=== PATIENT | female | born 1965 | race African-American/Black ===

== ENCOUNTER → 2016-04-11 | Outpatient (CLI) | payer BC, MEDICAID ==
[~2016-04-11] MED LIST: LISI-646 PO
== END | disposition home or self-care (01) ==
LOC: LAB 14:41
PROVIDERS: ATTEND Internal Medicine
DX: Z84.81 Family history of carrier of genetic disease (principal)
CPT/HCPCS: 81206; 81207

== ENCOUNTER → 2016-05-02 | Outpatient (CLI) | payer BC ==
[2016-05-02 08:06] LABS: Basophils # (auto) 0 uL; Basophils % (auto) 0.3 % (0.0-2.0); Eosinophils # (auto) 0.1 uL; Eosinophils % (auto) 1.3 % (0.0-7.0); Hematocrit 39.4 % (36.0-46.0); Hemoglobin 13.1 g/dL (12.2-16.2); Lymphocytes # (auto) 2.8 uL; Lymphocytes % (auto) 41.2 % (10.0-50.0); Mean Corpuscular Hemoglobin 29.3 pg (28.0-32.0); Mean Corpuscular Hgb Conc. 33.3 g/dL (32.0-36.0); Mean Corpuscular Volume 87.9 fL (80.0-100.0); Mean Platelet Volume 7.4 fL (7.4-10.4); Monocytes # (auto) 0.5 uL; Monocytes % (auto) 7.2 % (0.0-12.0); Neutrophils # (auto) 3.4 uL; Platelet Count (auto) 482 10^3/uL (140-450); Red Cell Distribution Width 13.3 % (11.6-16.0); White Blood Cell 6.8 10^3/uL (4.4-10.8)
[2016-05-02 10:18] LABS: Wright Stain Ready for Review
[2016-05-02 14:07] LABS: Albumin 3.5 g/dL (3.4-5.0); BUN/Creatinine Ratio 13.5; Bilirubin, Total 0.6 mg/dL (0.2-1.0); Calcium 8.7 mg/dL (8.5-10.1); Potassium 4.2 mmol/L (3.5-5.1); Total Protein 7.8 g/dL (6.4-8.2)
== END | disposition home or self-care (01) ==
LOC: LAB 06:58
PROVIDERS: ATTEND Internal Medicine
DX: Z12.11 Encounter for screening for malignant neoplasm of colon (principal)
CPT/HCPCS: 36415; 80053; 81206; 81207; 83615; 84155; 84165; 85025

== ENCOUNTER 2016-12-24 03:04 | Emergency (ER) | payer BC, MEDICAID ==
[~2016-12-24] VITALS: Ht 177.8 cm; Wt 108.9 kg
[2016-12-24 05:17] LABS: Urine Bacteria NONE SEEN /hpf (None Seen); Urine Blood Negative /uL (Negative); Urine Mucus FEW (None Seen); Urine Specific Gravity 1.026 (1.001-1.035); Urine WBC 1 /hpf (0 - 5)
[2016-12-24] MEDS ORDERED: HYDROcodone-ACET 10/325MG TAB PO ONE (06:30)
[2016-12-24] MEDS ORDERED: KETOROLAC TROMETH 60MG/2ML VIAL IM ONE (07:30)
[2016-12-24 08:10] VITALS: BP 151/98
== END 2016-12-24 08:12 | disposition home or self-care (01) ==
LOC: ER 03:06
DX: M43.07 Spondylolysis, lumbosacral region (principal); J45.909 Unspecified asthma, uncomplicated; I10 Essential (primary) hypertension; G89.29 Other chronic pain; M54.9 Dorsalgia, unspecified; Z88.6 Allergy status to analgesic agent; Z79.899 Other long term (current) drug therapy
CPT/HCPCS: 72100; 81001; 81025; 93005; 96372; 99285; J1885

== ENCOUNTER → 2017-01-13 | Outpatient (CLI) | payer BC ==
[2017-01-13 07:09] LABS: Basophils # (auto) 0 uL; Basophils % (auto) 0.4 % (0.0-2.0); Eosinophils # (auto) 0.1 uL; Hematocrit 40.1 % (36.0-46.0); Hemoglobin 13.2 g/dL (12.2-16.2); Lymphocytes # (auto) 2.9 uL; Lymphocytes % (auto) 45.1 % (10.0-50.0); Mean Corpuscular Hemoglobin 29.4 pg (28.0-32.0); Mean Corpuscular Hgb Conc. 32.9 g/dL (32.0-36.0); Mean Corpuscular Volume 89.3 fL (80.0-100.0); Mean Platelet Volume 6.8 fL (6.9-10.8); Monocytes # (auto) 0.5 uL; Monocytes % (auto) 8.5 % (0.0-12.0); Neutrophils # (auto) 2.8 uL; Nucleated Red Blood Cells % 0.1 %; Platelet Count (auto) 432 10^3/uL (140-450); Red Cell Distribution Width 13.5 % (11.8-14.3); White Blood Cell 6.3 10^3/uL (4.4-10.8)
[2017-01-13 07:18] LABS: Urine Bilirubin Negative (Negative); Urine Blood Negative /uL (Negative); Urine Color Yellow (Yellow); Urine Glucose Normal (Normal); Urine Ketone Negative (Negative); Urine Mucus FEW (None Seen); Urine Nitrite Negative (Negative); Urine RBC 2 /hpf (0 - 4); Urine Squamous Epithelial Cell FEW /hpf (<5); Urine Urobilinogen Normal (Negative)
[2017-01-13 08:13] LABS: Albumin 3.6 g/dL (3.4-5.0); BUN/Creatinine Ratio 19.5; Bilirubin, Total 0.6 mg/dL (0.2-1.0); Calcium 8.9 mg/dL (8.5-10.1); Potassium 3.9 mmol/L (3.5-5.1)
== END | disposition home or self-care (01) ==
LOC: LAB 06:34
PROVIDERS: ATTEND Internal Medicine
DX: I10 Essential (primary) hypertension (principal)
CPT/HCPCS: 36415; 80053; 80061; 81001; 82043; 84439; 84443; 85025; 85652

== ENCOUNTER 2017-02-14 17:58 | Emergency (ER) | payer BC ==
[~2017-02-14] VITALS: Ht 175.3 cm; Wt 108.9 kg
[2017-02-14] MEDS ORDERED: ACETAMINOPHEN 325 MG TAB PO ONE (18:15)
[2017-02-14 22:56] VITALS: BP 127/62
== END 2017-02-14 23:54 | disposition home or self-care (01) ==
LOC: ER 18:03
DX: J02.9 Acute pharyngitis, unspecified (principal); J45.909 Unspecified asthma, uncomplicated; I10 Essential (primary) hypertension; Z90.710 Acquired absence of both cervix and uterus; E66.01 Morbid (severe) obesity due to excess calories; Z68.35 Body mass index [BMI] 35.0-35.9, adult
CPT/HCPCS: 71020

== ENCOUNTER 2017-07-29 06:08 | Day surgery (SDC) | payer BC ==
[2017-07-28 16:04] LABS: Basophils # (auto) 0 uL; Eosinophils # (auto) 0.1 uL; Hemoglobin 13.3 g/dL (12.2-16.2); Monocytes # (auto) 0.6 uL; Neutrophils # (auto) 3.1 uL; Red Cell Distribution Width 13.7 % (11.8-14.3)
[2017-07-28 16:05] LABS: Basophils % (auto) 0.4 % (0.0-2.0); Eosinophils % (auto) 1.4 % (0.0-7.0); Hematocrit 39.8 % (36.0-46.0); Lymphocytes # (auto) 2.5 uL; Lymphocytes % (auto) 39.2 % (10.0-50.0); Mean Corpuscular Hemoglobin 30.2 pg (28.0-32.0); Mean Corpuscular Hgb Conc. 33.5 g/dL (32.0-36.0); Mean Corpuscular Volume 90.2 fL (80.0-100.0); Monocytes % (auto) 9.9 % (0.0-12.0); Neutrophils % (auto) 49.1 % (37.0-80.0); Nucleated Red Blood Cells % 0.1 %; Platelet Count (auto) 460 10^3/uL (140-450); Red Blood Cells 4.42 10^6/uL (4.0-5.20); White Blood Cell 6.3 10^3/uL (4.4-10.8)
[2017-07-28 16:19] LABS: Urine Blood Negative /uL (Negative); Urine Mucus FEW (None Seen); Urine WBC 1 /hpf (0 - 5)
[2017-07-28 16:21] LABS: Potassium 3.7 mmol/L (3.5-5.1)
[2017-07-28 16:26] LABS: Albumin 3.7 g/dL (3.4-5.0); BUN/Creatinine Ratio 15.7; Calcium 8.8 mg/dL (8.5-10.1)
[2017-07-28 16:29] LABS: Bilirubin, Total 0.7 mg/dL (0.2-1.0); INR 0.92 (0.9-1.15); Partial Thromboplastin Time 27.1 sec (23.78-33.04); Prothrombin Time 9.9 sec (9.27-12.13); Total Protein 8.6 g/dL (6.4-8.2)
[2017-07-28 16:35] LABS: Urine Bacteria FEW /hpf (None Seen)
[~2017-07-29] VITALS: Ht 175.3 cm; Wt 110.2 kg
[~2017-07-29 06:08] MED LIST changes: +AMLO10TA2 PO; +ATEN-60 PO; +HYDR25TA4 PO
[2017-07-29] MEDS ORDERED: BUPIVACAINE 0.25% INJ 50ML VIAL ONE ×2 (06:53→06:54)
[2017-07-29] MEDS ORDERED: ceFAZolin 1GM/100ML 200 ML IV ONE (07:08)
[2017-07-29] MEDS ORDERED: fentaNYL CITRATE 100 MCG/2 ML VL ONE (07:32)
[2017-07-29] MEDS ORDERED: MIDAZOLAM HCL 1MG/1ML-2 ML VIAL ONE (07:33)
[2017-07-29] MEDS ORDERED: MEPERIDINE HCL (50 MG/ML) 1 ML VIAL ONE (07:34)
[2017-07-29] MEDS ORDERED: DEXAMETHASONE SOD PHOS 10MG/1ML VIAL INJ ONE (07:58)
[2017-07-29] MEDS ORDERED: KETOROLAC TROMETH 30 MG/ML 1ML VIAL ONE (07:58)
[2017-07-29] MEDS ORDERED: PROPOFOL 10 MG/ML 20 ML IV ONE (07:58)
[2017-07-29] MEDS ORDERED: LABETALOL HCL 5 MG/ML 4ML SYRINGE IV PRN (08:00)
[2017-07-29] MEDS ORDERED: MORPHINE SULFATE 8mg/ml INJ SDV IV PRN (08:00)
[2017-07-29] MEDS ORDERED: ePHEDrine SULFATE 50 MG/ML AMP IV PRN (08:00)
[2017-07-29] MEDS ORDERED: ONDANSETRON HCL 4 MG/2 ML VIAL IV ONE (08:00)
[2017-07-29] MEDS ORDERED: MIDAZOLAM HCL 1MG/1ML-2 ML VIAL IV PRN (08:00)
[2017-07-29] MEDS ORDERED: MORPHINE SULFATE 8mg/ml INJ SDV IV ONE (08:00)
[2017-07-29] MEDS ORDERED: HYDROmorphone HCL 2 MG/ML VL IV PRN (08:00)
[2017-07-29] MEDS ORDERED: KETOROLAC TROMETH 30 MG/ML 1ML VIAL IV ONE (08:00)
[2017-07-29] MEDS ORDERED: MORPHINE SULF(PF) 0.5MG/ML 10ML VIAL ONE (08:02)
[2017-07-29] MEDS ORDERED: ONDANSETRON HCL 4 MG/2 ML VIAL ONE (08:04)
[2017-07-29] MEDS ORDERED: SUCCINYLCHOLINE CHLORIDE 20 MG/ML 10ML VIAL IV ONE (08:13)
[2017-07-29 09:53] VITALS: BP 129/75
[2017-07-29] MEDS ORDERED: MORPHINE SULFATE 4 MG/ML SYR/VIAL ONE (10:15)
== END 2017-07-29 10:08 | disposition home or self-care (01) ==
LOC: SUR 06:08
PROVIDERS: ATTEND Orthopaedic Surgery
DX: S83.282A Other tear of lateral meniscus, current injury, left knee, initial encounter (principal); S83.92XA Sprain of unspecified site of left knee, initial encounter; E66.01 Morbid (severe) obesity due to excess calories; M94.262 Chondromalacia, left knee; J45.909 Unspecified asthma, uncomplicated; I10 Essential (primary) hypertension; X58.XXXA Exposure to other specified factors, initial encounter; Y93.9 Activity, unspecified; Y92.9 Unspecified place or not applicable; Y99.9 Unspecified external cause status; Z79.01 Long term (current) use of anticoagulants; Z88.6 Allergy status to analgesic agent; Z90.710 Acquired absence of both cervix and uterus; Z79.899 Other long term (current) drug therapy; Z68.37 Body mass index [BMI] 37.0-37.9, adult
CPT/HCPCS: 29881; 36415; 80053; 81001; 85025; 85610; 85730; J0330; J0690; J1100; J1885; J2175; J2250; J2270; J2405; J2704; J3010; J3490

== ENCOUNTER → 2019-10-18 | Outpatient (CLI) | payer BC ==
[~2019-10-18] MED LIST changes: +AMLO10TA13 PO; -AMLO10TA2 PO
[2019-10-18 16:43] LABS: Basophils # (auto) 0 10 ^3/uL (0-0.2); Eosinophils # (auto) 0.1 10 ^3/uL (0-0.8); Monocytes # (auto) 0.5 10 ^3/uL (0-1.3); White Blood Cell 6.3 10^3/uL (4.4-10.8)
[2019-10-18 16:47] LABS: Basophils % (auto) 0.4 % (0.0-2.0); Eosinophils % (auto) 1.8 % (0.0-7.0); Hematocrit 39.6 % (36.0-46.0); Hemoglobin 13.2 g/dL (12.2-16.2); Lymphocytes # (auto) 2.6 10 ^3/uL (0.4-5.4); Lymphocytes % (auto) 41.4 % (10.0-50.0); Mean Corpuscular Hemoglobin 29.5 pg (28.0-32.0); Mean Corpuscular Hgb Conc. 33.4 g/dL (32.0-36.0); Mean Corpuscular Volume 88.2 fL (80.0-100.0); Monocytes % (auto) 8.7 % (0.0-12.0); Neutrophils % (auto) 47.7 % (37.0-80.0); Nucleated Red Blood Cells % 0.2 %; Platelet Count (auto) 467 10^3/uL (140-450); Red Blood Cells 4.49 10^6/uL (4.0-5.20); Red Cell Distribution Width 13.7 % (11.8-14.3)
[2019-10-18 16:58] LABS: Urine Bacteria FEW /hpf (None Seen); Urine Blood Negative /uL (Negative); Urine Specific Gravity 1.015 (1.001-1.035); Urine WBC 7 /hpf (0 - 5)
[2019-10-18 16:59] LABS: Calcium 9.5 mg/dL (8.5-10.1); Potassium 3.7 mmol/L (3.5-5.1)
[2019-10-18 17:03] LABS: BUN/Creatinine Ratio 10.2; Bilirubin, Total 0.7 mg/dL (0.2-1.0); Total Protein 8.5 g/dL (6.4-8.2)
== END | disposition home or self-care (01) ==
LOC: LAB 16:12
PROVIDERS: ATTEND Internal Medicine
DX: I10 Essential (primary) hypertension (principal); R89.9 Unspecified abnormal finding in specimens from other organs, systems and tissues
CPT/HCPCS: 36415; 80053; 81001; 84439; 84443; 85025; 85610; 85652; 86038; 86200; 86431

== ENCOUNTER 2019-10-29 09:54 | Inpatient (IN) | payer BC ==
[2019-10-29] VITALS (8 sets, daily range): BP systolic 104–139; BP diastolic 48–72
[~2019-10-29] VITALS: Ht 177.8 cm; Wt 122.4 kg
[2019-10-29] MEDS ORDERED: ceFAZolin 1GM/50ML 100 ML IV ONE (10:28)
[2019-10-29] MEDS ORDERED: PREGABALIN CAPSULE 75 MG CAP ONE (11:01)
[2019-10-29] MEDS ORDERED: ACETAMINOPHEN IV 100 ML IV ONE (11:01)
[2019-10-29] MEDS ORDERED: CELECOXIB 100 MG CAP ONE (11:01)
[2019-10-29] MEDS ORDERED: BUPIVACAINE 0.25% INJ 50ML VIAL ONE (12:59)
[2019-10-29] MEDS ORDERED: TRANEXAMIC ACID 20 ML ONE (12:59)
[2019-10-29] MEDS ORDERED: TETRACAINE 1% INJ 2 ML VIAL IJ ONE (13:00)
[2019-10-29] MEDS ORDERED: MORPHINE SULF(PF) 0.5MG/ML 10ML VIAL ONE ×2 (13:01→13:27)
[2019-10-29] MEDS ORDERED: KETOROLAC TROMETH 30 MG/ML 1ML VIAL ONE (13:02)
[2019-10-29] MEDS ORDERED: VANCOMYCIN HCL 1000 MG VL ONE (13:09)
[2019-10-29] MEDS ORDERED: fentaNYL CITRATE 100 MCG/2 ML VL ONE (13:27)
[2019-10-29] MEDS ORDERED: ONDANSETRON HCL 4 MG/2 ML VIAL ONE (13:28)
[2019-10-29] MEDS ORDERED: MIDAZOLAM HCL 1MG/1ML-2 ML VIAL ONE ×2 (13:28→13:31)
[2019-10-29] MEDS ORDERED: SODIUM CHLORIDE LOCK 10 ML ONE (13:28)
[2019-10-29] MEDS ORDERED: PROPOFOL 10 MG/ML 20 ML IV ONE (13:28)
[2019-10-29] MEDS ORDERED: BUPIVACAINE/DEXTROSE MPF 0.75% 2 ML AMP IT ONE (13:29)
[2019-10-29] MEDS ORDERED: EPINEPHrine HCL 1 MG/1 ML AMP ONE (13:29)
[2019-10-29] MEDS ORDERED: NALOXONE HCL 0.4 MG/ML VIAL IV PRN (15:30)
[2019-10-29] MEDS ORDERED: METOCLOPRAMIDE HCL 5MG/ml INJ 2ml VIAL IV PRN (15:30)
[2019-10-29] MEDS ORDERED: diphenhdrAMINE HCL 50 MG/1 ML VL IV PRN (15:30)
[2019-10-29] MEDS ORDERED: MORPHINE SULFATE 4 MG/ML SYR/VIAL IV PRN (15:30)
[2019-10-29] MEDS ORDERED: HYDROmorphone HCL 2 MG/ML VL IV PRN ×2 (15:30→15:45)
[2019-10-29] MEDS: LACTATED RINGER'S 1,000 ML IV SCH ×2 (15:44→21:33)
[2019-10-29] MEDS ORDERED: NITROGLYCERIN 0.4 MG SL TAB SL PRN (15:45)
[2019-10-29] MEDS ORDERED: MORPHINE SULF INJ 2 MG/ML SYRINGE 1ML IV PRN (15:45)
[2019-10-29] MEDS ORDERED: OXYCODONE W/ ACETAMINOPHEN 5/325MG TABLET PO PRN ×2 (15:45)
[2019-10-29] MEDS ORDERED: ONDANSETRON HCL 4 MG/2 ML VIAL IV PRN (15:45)
[2019-10-29] MEDS: KETOROLAC TROMETH 30 MG/ML 1ML VIAL IV SCH (18:25)
--- NOTE | 2019-10-29 19:44 | NUR ---
Opening Shift Note Received report and assumed care of patient. Patient is asleep but responds to verbal stimuli. No signs or symptoms of distress noted, patient currently denies pain. Dressing to Left knee is clean, dry and intact. Instructed patient on plan of care and to call for assistance as needed. Will continue to monitor.
[2019-10-29] MEDS: DOCUSATE SOD 100 MG CAP PO SCH (22:00)
--- NOTE | 2019-10-29 22:11 | NUR ---
Patient Refusing Medication Patient refusing Colace stool softener at this time. Patient states she does not want to take at this time, educated patient regarding risks and benefits of refusing medication. Patient verbalized understanding, continues to refuse. Will continue to monitor.
[2019-10-30] VITALS (21 sets, daily range): BP systolic 94–135; BP diastolic 39–86
[2019-10-30] MEDS: KETOROLAC TROMETH 30 MG/ML 1ML VIAL IV SCH ×5 (00:50→23:35)
--- NOTE | 2019-10-30 07:35 | NUR ---
Duramorph Vital Signs Blood pressure and heart rate documented hourly in vital signs.
[2019-10-30] MEDS ORDERED: METOCLOPRAMIDE HCL 5MG/ml INJ 2ml VIAL IV PRN (09:00)
[2019-10-30] MEDS: DOCUSATE SOD 100 MG CAP PO SCH ×2 (09:14→21:47)
[2019-10-30] MEDS: ENOXAPARIN SOD 40 MG/0.4 ML SYRINGE SC SCH (09:14)
[2019-10-30] MEDS: HCTZ 25 MG TAB PO SCH (09:17)
[2019-10-30] MEDS: amLODIPine BESYLATE 5 MG TAB PO SCH (09:17)
[2019-10-30] MEDS: ATENOLOL 25 MG TAB PO SCH (09:17)
[2019-10-30] MEDS: LISINOPRIL 20 MG TAB PO SCH (09:18)
--- NOTE | 2019-10-30 11:00 | NUR ---
PT FEELING NAUSEATED AND DIZZY. ATTEMPT P.T. LATER. CPM PLACED ON LLE
[2019-10-30] MEDS: SODIUM CHLORIDE 0.9% 1,000 ML IV SCH ×2 (12:25→20:30)
[2019-10-30 12:51] LABS: Hemoglobin 12.9 g/dL (12.2-16.2)
[2019-10-30 13:07] LABS: Albumin 3.3 g/dL (3.4-5.0); Calcium 8.9 mg/dL (8.5-10.1); Potassium 4.1 mmol/L (3.5-5.1)
[2019-10-30 13:11] LABS: Bilirubin, Total 0.7 mg/dL (0.2-1.0); Total Protein 7.7 g/dL (6.4-8.2)
--- NOTE | 2019-10-30 19:45 | NUR ---
Opening Shift Note Received report and assumed care of patient. Patient is awake and alert. No signs or symptoms of distress noted. Dressing to Left knee is clean, dry and intact. Instructed patient on plan of care and to call for assistance as needed. Will continue to monitor.
[2019-10-31] MEDS: SODIUM CHLORIDE 0.9% 1,000 ML IV SCH (02:16)
[2019-10-31 05:00] VITALS: BP 151/79
[2019-10-31 05:26] VITALS: BP 147/84
--- NOTE | 2019-10-31 05:27 | NUR ---
Paged Hospitalist Paged hospitalist regarding upward trend in blood pressure and heart rate from previous night. Last night heart rate in 40s-50s and blood pressure in 100s-110s systolic. Heart rate trends this night 80s-100s and blood pressure in 130-150 systolic. Per MD, discontinue IV fluids at 125ml/hr. Order read back and verified, will carry out and will continue to monitor.
[2019-10-31] MEDS: KETOROLAC TROMETH 30 MG/ML 1ML VIAL IV SCH ×4 (05:38→23:51)
[2019-10-31 08:31] LABS: Hematocrit 33.9 % (36.0-46.0)
[2019-10-31] MEDS: amLODIPine BESYLATE 5 MG TAB PO SCH (08:57)
[2019-10-31] MEDS: ATENOLOL 25 MG TAB PO SCH (08:57)
[2019-10-31] MEDS: LISINOPRIL 20 MG TAB PO SCH (08:58)
[2019-10-31] MEDS: DOCUSATE SOD 100 MG CAP PO SCH ×2 (08:58→22:25)
[2019-10-31] MEDS: HCTZ 25 MG TAB PO SCH (08:58)
[2019-10-31] MEDS: ENOXAPARIN SOD 40 MG/0.4 ML SYRINGE SC SCH (08:59)
[2019-10-31 09:00] VITALS: BP 158/82
[2019-10-31 13:00] VITALS: BP_SYST 147; BP_SYST 157; BP_DIAS 80
[2019-10-31 16:58] VITALS: BP 142/74
--- NOTE | 2019-10-31 19:41 | NUR ---
Opening Shift Note Received report and assumed care of patient. Patient is awake and alert. No signs or symptoms of distress noted. Instructed patient on plan of care and to call for assistance as needed. Will continue to monitor.
[2019-10-31 21:54] VITALS: BP 134/74
[2019-10-31] MEDS ORDERED: ZOLPIDEM TARTRATE 5 MG TAB PO PRN (22:15)
--- NOTE | 2019-11-01 00:10 | NUR ---
SBAR Handoff Report and care endorsed to KULDEEP Albert.
--- NOTE | 2019-11-01 00:45 | NUR ---
Assumed care of pt. Pt is sleeping in bed on her right side with even and unlabored respirations. Will continue to monitor Q1hr and PRN.
[2019-11-01 05:32] VITALS: BP 133/71
[2019-11-01 05:41] LABS: Hemoglobin 10.8 g/dL (12.2-16.2)
[2019-11-01] MEDS: KETOROLAC TROMETH 30 MG/ML 1ML VIAL IV SCH (05:55)
--- NOTE | 2019-11-01 07:10 | NUR ---
Opening shift note Assumed care patient AOx4. Patient currently on CPM to left leg. Patient complains of pain 6/10 at this time but verbalizes she does not need pain medication. Patient updated on POC for the day, she verbalized understanding. No s/s of distress noted at this time, respirations even and unlabored. Bed in lowest, locked position, call light within reach. Will continue care.
[2019-11-01 08:40] VITALS: BP 130/76
[2019-11-01] MEDS: HCTZ 25 MG TAB PO SCH (09:52)
[2019-11-01] MEDS: LISINOPRIL 20 MG TAB PO SCH (09:52)
[2019-11-01] MEDS: amLODIPine BESYLATE 5 MG TAB PO SCH (09:53)
[2019-11-01] MEDS: ATENOLOL 25 MG TAB PO SCH (09:53)
[2019-11-01] MEDS: ENOXAPARIN SOD 40 MG/0.4 ML SYRINGE SC SCH (09:54)
[2019-11-01] MEDS: DOCUSATE SOD 100 MG CAP PO SCH (09:55)
[2019-11-01 12:08] VITALS: BP 130/76
[2019-11-01 13:00] VITALS: BP 134/74
--- NOTE | 2019-11-01 14:18 | NUR ---
Discharge instructions given as ordered. Encourage to follow up with PMD as instructed. All questions and concerns addressed. Patient verbalized understanding. CPM machine with patient. Aquacel surgical dressing to left knee replaced as previous one was detaching. IV removed with catheter intact, pressure dressing applied. Telemetry unit returned to ICU. Patient taken to vehicle via wheelchair with all personal belongings, accompanied by staff and this RN. No distress noted at time of departure.
--- NOTE | 2019-11-02 16:26 | NUR ---
completion supervisor 11/01/19 Received a page from Carrie LIGHT stating that patient is discharging home. Per Carrie patient is willing and able to go to out patient physical therapy. Per Carrie Dietrich gave patient a prescription for out patient PT. I called and verified with patient she has prescription. Patient informed me she does, but has not made appointment as of now. I will follow up in the morning with Dr Dietrich. Addendum: 11/02/19 at 1629 by Susan MCFARLANE Amended: Links added.
--- NOTE | 2019-11-03 11:00 | NUR ---
re-assessment I have sent consult for home health for PT to Deysi Newsome. Per Linda at [facility] she has accepted patient fo service. I will contact Beckie from [facility] for auth. Addendum: 11/04/19 at 0925 by Susan Sigala Amended: Links added.
--- NOTE | 2019-11-04 09:24 | NUR ---
re-assessment Per Beckie from [employer] she will give Linda john Melloce Mercedez authorization. Called patient and notified her of home health. Addendum: 11/04/19 at 0925 by Susan MCFARLANE Amended: Links added.
== END 2019-11-01 14:17 | disposition home or self-care (01) | DRG 470 ==
LOC: SUR 09:54 → TELE-WESTW 09:55
PROVIDERS: ADMIT Orthopaedic Surgery Adult Reconstructive Orthopaedic Surgery; ATTEND Orthopaedic Surgery Adult Reconstructive Orthopaedic Surgery
PROC: 0SRD0J9 Replacement of Left Knee Joint with Synthetic Substitute, Cemented, Open Approach (ICD-10-PCS; principal; 2019-10-29 13:47)
DX: M17.12 Unilateral primary osteoarthritis, left knee (principal); I10 Essential (primary) hypertension; Z20.828 Contact with and (suspected) exposure to other viral communicable diseases
CPT/HCPCS: 36415; 73560; 80053; 85014; 85018; 86850; 86900; 86901; C1713; G0378; J0131; J0171; J0690; J1885; J2250; J2405; J2704; J3490

== ENCOUNTER → 2019-12-31 | Day surgery (SDC) | payer BC ==
[2019-12-27 15:44] LABS: Basophils # (auto) 0 10 ^3/uL (0-0.2); Eosinophils # (auto) 0.2 10 ^3/uL (0-0.8); Nucleated Red Blood Cells % 0.1 %
[2019-12-27 15:47] LABS: Basophils % (auto) 0.6 % (0.0-2.0); Eosinophils % (auto) 2.3 % (0.0-7.0); Hematocrit 38.2 % (36.0-46.0); Hemoglobin 12.7 g/dL (12.2-16.2); Lymphocytes # (auto) 2.8 10 ^3/uL (0.4-5.4); Lymphocytes % (auto) 40.7 % (10.0-50.0); Mean Corpuscular Hgb Conc. 33.3 g/dL (32.0-36.0); Mean Corpuscular Volume 87.2 fL (80.0-100.0); Monocytes # (auto) 0.7 10 ^3/uL (0-1.3); Monocytes % (auto) 10.4 % (0.0-12.0); Neutrophils # (auto) 3.2 10 ^3/uL (1.6-8.6); Platelet Count (auto) 505 10^3/uL (140-450); Red Blood Cells 4.38 10^6/uL (4.0-5.20); Red Cell Distribution Width 13.9 % (11.8-14.3)
[2019-12-27 15:49] LABS: Urine Bacteria NONE SEEN /hpf (None Seen); Urine Blood Negative /uL (Negative); Urine Mucus FEW (None Seen); Urine Specific Gravity 1.024 (1.001-1.035); Urine WBC 1 /hpf (0 - 5)
[2019-12-27 16:01] LABS: INR 1.03 (0.9-1.15); Partial Thromboplastin Time 27.3 sec (23.0-31.2)
[2019-12-27 16:15] LABS: Calcium 9.2 mg/dL (8.5-10.1); Potassium 3.6 mmol/L (3.5-5.1)
[2019-12-27 16:18] LABS: BUN/Creatinine Ratio 9.8; Bilirubin, Total 0.5 mg/dL (0.2-1.0); Total Protein 8.5 g/dL (6.4-8.2)
[~2019-12-31] VITALS: Ht 177.8 cm; Wt 113.4 kg
[~2019-12-31] MED LIST changes: +ALBUAER3 IN; +BUPIVACAINE 0.25% INJ 50ML VIAL ONE; +DexAMETHasone SOD PHOS 10MG/1ML VIAL INJ ONE; +GLYCOPYRROLATE 0.2 MG/ML 1ML VIAL ONE; +HYDROmorphone HCL 2 MG/ML VL IV PRN; +KETAMINE HCL 10 ML ONE; +KETOROLAC TROMETH 30 MG/ML 1ML VIAL ONE; +LIDOCAINE 2% (LOCAL ANESTH.) PF 5ml SDV ONE; +MIDAZOLAM HCL 1MG/1ML-2 ML VIAL ONE; +ONDANSETRON HCL 4 MG/2 ML VIAL IV PRN; +ONDANSETRON HCL 4 MG/2 ML VIAL ONE; +PROPOFOL 10 MG/ML 20 ML IV ONE; +ceFAZolin 1GM/50ML 100 ML IV ONE; +methylPREDNISolone ACETATE 80 MG/ML VL ONE
[2019-12-31 08:25] VITALS: BP 164/72
== END | disposition home or self-care (01) ==
LOC: SUR 06:03
PROVIDERS: ATTEND Orthopaedic Surgery Adult Reconstructive Orthopaedic Surgery
DX: M24.662 Ankylosis, left knee (principal); J45.909 Unspecified asthma, uncomplicated; Z90.710 Acquired absence of both cervix and uterus; I10 Essential (primary) hypertension; M19.90 Unspecified osteoarthritis, unspecified site; E66.9 Obesity, unspecified; Z20.828 Contact with and (suspected) exposure to other viral communicable diseases; Z98.890 Other specified postprocedural states; Z79.899 Other long term (current) drug therapy; Z88.8 Allergy status to other drugs, medicaments and biological substances; Z68.35 Body mass index [BMI] 35.0-35.9, adult
CPT/HCPCS: 27570; 36415; 76000; 80053; 81001; 85025; 85610; 85730; J0690; J1040; J1100; J1885; J2001; J2250; J2405; J2704; J3490; U0003; 73560

== ENCOUNTER → 2020-05-11 | Outpatient (CLI) | payer BC ==
[~2020-05-11] MED LIST changes: +AMLO-496 PO; -AMLO10TA13 PO; -BUPIVACAINE 0.25% INJ 50ML VIAL ONE; -DexAMETHasone SOD PHOS 10MG/1ML VIAL INJ ONE; -GLYCOPYRROLATE 0.2 MG/ML 1ML VIAL ONE; -HYDROmorphone HCL 2 MG/ML VL IV PRN; -KETAMINE HCL 10 ML ONE; -KETOROLAC TROMETH 30 MG/ML 1ML VIAL ONE; -LIDOCAINE 2% (LOCAL ANESTH.) PF 5ml SDV ONE; -MIDAZOLAM HCL 1MG/1ML-2 ML VIAL ONE; -ONDANSETRON HCL 4 MG/2 ML VIAL IV PRN; -ONDANSETRON HCL 4 MG/2 ML VIAL ONE; -PROPOFOL 10 MG/ML 20 ML IV ONE; -ceFAZolin 1GM/50ML 100 ML IV ONE; -methylPREDNISolone ACETATE 80 MG/ML VL ONE
[2020-05-11 07:54] LABS: Basophils # (auto) 0 10 ^3/uL (0-0.2); Basophils % (auto) 0.9 % (0.0-2.0); Eosinophils # (auto) 0.1 10 ^3/uL (0-0.8); Eosinophils % (auto) 1.9 % (0.0-7.0); Hematocrit 36.9 % (36.0-46.0); Hemoglobin 12.5 g/dL (12.2-16.2); Lymphocytes # (auto) 2.2 10 ^3/uL (0.4-5.4); Lymphocytes % (auto) 45.2 % (10.0-50.0); Mean Corpuscular Hemoglobin 30.1 pg (28.0-32.0); Mean Corpuscular Hgb Conc. 33.8 g/dL (32.0-36.0); Monocytes # (auto) 0.4 10 ^3/uL (0-1.3); Monocytes % (auto) 8.7 % (0.0-12.0); Neutrophils # (auto) 2.1 10 ^3/uL (1.6-8.6); Neutrophils % (auto) 43.3 % (37.0-80.0); Nucleated Red Blood Cells % 0.1 %; Platelet Count (auto) 439 10^3/uL (140-450); Red Blood Cells 4.15 10^6/uL (4.0-5.20); Red Cell Distribution Width 14.7 % (11.8-14.3)
[2020-05-11 07:59] LABS: Urine Bacteria FEW /hpf (None Seen); Urine Blood Negative /uL (Negative); Urine Mucus FEW (None Seen); Urine Specific Gravity 1.028 (1.001-1.035); Urine WBC 3 /hpf (0 - 5)
[2020-05-11 09:07] LABS: Albumin 3.6 g/dL (3.4-5.0); Calcium 9.2 mg/dL (8.5-10.1); Potassium 3.5 mmol/L (3.5-5.1)
[2020-05-11 09:13] LABS: BUN/Creatinine Ratio 24.1; Bilirubin, Total 0.5 mg/dL (0.2-1.0)
== END | disposition home or self-care (01) ==
LOC: LAB 07:11
PROVIDERS: ATTEND Internal Medicine
DX: I10 Essential (primary) hypertension (principal)
CPT/HCPCS: 36415; 80053; 80061; 81001; 84439; 84443; 85025; 85652

== ENCOUNTER → 2020-06-14 | Outpatient (CLI) | payer BC ==
[2020-06-14 12:11] LABS: Basophils # (auto) 0.1 10 ^3/uL (0-0.2); Eosinophils # (auto) 0 10 ^3/uL (0-0.8); Hemoglobin 13.4 g/dL (12.2-16.2); Monocytes # (auto) 0.8 10 ^3/uL (0-1.3)
[2020-06-14 12:13] LABS: Basophils % (auto) 0.5 % (0.0-2.0); Eosinophils % (auto) 0.1 % (0.0-7.0); Hematocrit 39.3 % (36.0-46.0); Lymphocytes # (auto) 2.3 10 ^3/uL (0.4-5.4); Lymphocytes % (auto) 17.8 % (10.0-50.0); Mean Corpuscular Hemoglobin 30.3 pg (28.0-32.0); Mean Corpuscular Hgb Conc. 34.1 g/dL (32.0-36.0); Mean Corpuscular Volume 88.9 fL (80.0-100.0); Neutrophils # (auto) 9.8 10 ^3/uL (1.6-8.6); Neutrophils % (auto) 75.6 % (37.0-80.0); Nucleated Red Blood Cells % 0.1 %; Platelet Count (auto) 450 10^3/uL (140-450); Red Blood Cells 4.42 10^6/uL (4.0-5.20); Red Cell Distribution Width 14.3 % (11.8-14.3)
[2020-06-14 12:50] LABS: Albumin 3.8 g/dL (3.4-5.0); Calcium 9.3 mg/dL (8.5-10.1); Potassium 3.8 mmol/L (3.5-5.1)
[2020-06-14 12:54] LABS: BUN/Creatinine Ratio 22.6; Bilirubin, Total 0.5 mg/dL (0.2-1.0); CRP High Sensitivity 0.7 mg/dL (< 0.3); Total Protein 8.2 g/dL (6.4-8.2)
== END | disposition home or self-care (01) ==
LOC: LAB 11:38
PROVIDERS: ATTEND Internal Medicine
DX: I10 Essential (primary) hypertension (principal); M54.16 Radiculopathy, lumbar region
CPT/HCPCS: 36415; 80053; 82306; 85025; 85652; 86141

== ENCOUNTER → 2020-09-02 | Outpatient (CLI) | payer BC ==
[~2020-09-02] MED LIST changes: -LISI-646 PO; +LISI20TA28 PO
[2020-09-02 08:51] LABS: Basophils # (auto) 0 10 ^3/uL (0-0.2); Basophils % (auto) 0.5 % (0.0-2.0); Eosinophils # (auto) 0.1 10 ^3/uL (0-0.8); Hematocrit 39.3 % (36.0-46.0); Hemoglobin 13.6 g/dL (12.2-16.2); Lymphocytes # (auto) 2.8 10 ^3/uL (0.4-5.4); Lymphocytes % (auto) 52.9 % (10.0-50.0); Mean Corpuscular Hemoglobin 30.4 pg (28.0-32.0); Mean Corpuscular Hgb Conc. 34.5 g/dL (32.0-36.0); Mean Corpuscular Volume 88.2 fL (80.0-100.0); Monocytes # (auto) 0.4 10 ^3/uL (0-1.3); Monocytes % (auto) 8.3 % (0.0-12.0); Neutrophils # (auto) 1.9 10 ^3/uL (1.6-8.6); Neutrophils % (auto) 36.3 % (37.0-80.0); Nucleated Red Blood Cells % 0.1 %; Platelet Count (auto) 423 10^3/uL (140-450); Red Blood Cells 4.45 10^6/uL (4.0-5.20); Red Cell Distribution Width 13.9 % (11.8-14.3); White Blood Cell 5.2 10^3/uL (4.4-10.8)
== END | disposition home or self-care (01) ==
LOC: LAB 08:11
PROVIDERS: ATTEND Internal Medicine
DX: L30.9 Dermatitis, unspecified (principal)
CPT/HCPCS: 36415; 85025; 85049; 86141

== ENCOUNTER 2020-11-07 19:23 | Emergency (ER) | payer BC ==
[~2020-11-07] VITALS: Ht 177.8 cm; Wt 108.9 kg
[2020-11-07 19:25] VITALS: BP 175/84
== END 2020-11-07 21:35 | disposition left against medical advice (07) ==
LOC: ER 19:23
DX: M25.511 Pain in right shoulder (principal); Z53.21 Procedure and treatment not carried out due to patient leaving prior to being seen by health care provider

== ENCOUNTER → 2021-03-30 | Outpatient (CLI) | payer BC ==
[~2021-03-30] MED LIST changes: +BUPIVACAINE HCL 0.25% P/F 10 ML VIAL ONE; +IOHEXOL 300 MG/ML 100ML BOTTLE IJ ONE; +LIDOCAINE 2%HCL (LOCAL ANESTH.) INJ 20ML MDV ONE; +methylPREDNISolone ACETATE 80 MG/ML VL ONE
== END | disposition home or self-care (01) ==
LOC: XY 03-29 11:57
PROVIDERS: ATTEND Orthopaedic Surgery Adult Reconstructive Orthopaedic Surgery
DX: M25.511 Pain in right shoulder (principal); M25.512 Pain in left shoulder
CPT/HCPCS: 20610; 73020; 77002; A4223; J1040; J3490; Q9967

== ENCOUNTER → 2021-07-13 | Outpatient (CLI) | payer BC ==
[~2021-07-13] MED LIST changes: -BUPIVACAINE HCL 0.25% P/F 10 ML VIAL ONE; -IOHEXOL 300 MG/ML 100ML BOTTLE IJ ONE; -LIDOCAINE 2%HCL (LOCAL ANESTH.) INJ 20ML MDV ONE; -methylPREDNISolone ACETATE 80 MG/ML VL ONE
[2021-07-13 08:41] LABS: Urine Bacteria NONE SEEN /hpf (None Seen); Urine Blood Negative /uL (Negative); Urine Mucus FEW (None Seen); Urine Specific Gravity 1.017 (1.001-1.035); Urine WBC 1 /hpf (0 - 5)
[2021-07-13 08:42] LABS: Basophils # (auto) 0.1 10 ^3/uL (0-0.2); Basophils % (auto) 0.9 % (0.0-2.0); Eosinophils # (auto) 0.1 10 ^3/uL (0-0.8); Hematocrit 39.7 % (36.0-46.0); Hemoglobin 13.3 g/dL (12.2-16.2); Lymphocytes # (auto) 3.1 10 ^3/uL (0.4-5.4); Lymphocytes % (auto) 48.8 % (10.0-50.0); Mean Corpuscular Hemoglobin 29.8 pg (28.0-32.0); Mean Corpuscular Hgb Conc. 33.6 g/dL (32.0-36.0); Mean Corpuscular Volume 88.8 fL (80.0-100.0); Monocytes # (auto) 0.4 10 ^3/uL (0-1.3); Monocytes % (auto) 6.8 % (0.0-12.0); Neutrophils # (auto) 2.6 10 ^3/uL (1.6-8.6); Neutrophils % (auto) 41.5 % (37.0-80.0); Nucleated Red Blood Cells % 0.1 %; Red Blood Cells 4.47 10^6/uL (4.0-5.20); Red Cell Distribution Width 13.8 % (11.8-14.3); White Blood Cell 6.4 10^3/uL (4.4-10.8)
[2021-07-13 09:06] LABS: Albumin 3.4 g/dL (3.4-5.0); Calcium 8.9 mg/dL (8.5-10.1); Potassium 3.7 mmol/L (3.5-5.1)
[2021-07-13 09:10] LABS: BUN/Creatinine Ratio 13.3; Bilirubin, Total 0.6 mg/dL (0.2-1.0); Total Protein 7.4 g/dL (6.4-8.2)
== END | disposition home or self-care (01) ==
LOC: LAB 08:16
PROVIDERS: ATTEND Internal Medicine
DX: Z01.84 Encounter for antibody response examination (principal); Z12.11 Encounter for screening for malignant neoplasm of colon; I10 Essential (primary) hypertension; E67.3 Hypervitaminosis D
CPT/HCPCS: 36415; 80053; 80061; 81001; 82306; 84439; 84443; 85025; 85652; 86308; 86706; 86762; 86765; 86787

== ENCOUNTER → 2021-08-13 | Outpatient (CLI) | payer BC | END | disposition home or self-care (01) | LOC: LAB 08:26 | PROVIDERS: ATTEND Internal Medicine | DX: Z01.84 Encounter for antibody response examination (principal); L30.9 Dermatitis, unspecified | CPT/HCPCS: 86431; 86735 ==

== ENCOUNTER → 2021-09-20 | Outpatient (CLI) | payer BC ==
[2021-09-20 11:01] LABS: Basophils # (auto) 0 10 ^3/uL (0-0.2); Lymphocytes # (auto) 2.6 10 ^3/uL (0.4-5.4)
[2021-09-20 11:03] LABS: Basophils % (auto) 0.6 % (0.0-2.0); Eosinophils # (auto) 0.2 10 ^3/uL (0-0.8); Eosinophils % (auto) 2.6 % (0.0-7.0); Hematocrit 39.9 % (36.0-46.0); Hemoglobin 12.9 g/dL (12.2-16.2); Lymphocytes % (auto) 43.2 % (10.0-50.0); Mean Corpuscular Hemoglobin 28.6 pg (28.0-32.0); Mean Corpuscular Hgb Conc. 32.3 g/dL (32.0-36.0); Mean Corpuscular Volume 88.5 fL (80.0-100.0); Monocytes # (auto) 0.5 10 ^3/uL (0-1.3); Monocytes % (auto) 8.2 % (0.0-12.0); Neutrophils # (auto) 2.7 10 ^3/uL (1.6-8.6); Neutrophils % (auto) 45.4 % (37.0-80.0); Nucleated Red Blood Cells % 0.1 %; Red Blood Cells 4.51 10^6/uL (4.0-5.20); Red Cell Distribution Width 14.3 % (11.8-14.3); White Blood Cell 5.9 10^3/uL (4.4-10.8)
[2021-09-20 11:05] LABS: Urine Bacteria NONE SEEN /hpf (None Seen); Urine Blood Negative /uL (Negative); Urine Mucus FEW (None Seen); Urine Specific Gravity 1.011 (1.001-1.035); Urine WBC 2 /hpf (0 - 5)
[2021-09-20 11:22] LABS: Albumin 3.6 g/dL (3.4-5.0); Calcium 9.1 mg/dL (8.5-10.1); Potassium 3.7 mmol/L (3.5-5.1)
[2021-09-20 11:32] LABS: Bilirubin, Total 0.6 mg/dL (0.2-1.0); CRP High Sensitivity 3.51 mg/dL (< 0.3)
== END | disposition home or self-care (01) ==
LOC: LAB 10:24
PROVIDERS: ATTEND Internal Medicine Rheumatology
DX: M05.79 Rheumatoid arthritis with rheumatoid factor of multiple sites without organ or systems involvement (principal); M45.9 Ankylosing spondylitis of unspecified sites in spine; R94.5 Abnormal results of liver function studies; M32.10 Systemic lupus erythematosus, organ or system involvement unspecified
CPT/HCPCS: 36415; 80053; 81001; 82232; 82550; 85025; 85652; 86038; 86141; 86812

== ENCOUNTER → 2021-11-13 | Outpatient (CLI) | payer BC ==
[~2021-11-13] MED LIST changes: +BUPIVACAINE HCL 0.25% P/F 10 ML VIAL ONE; +IOHEXOL 300 MG/ML 100ML BOTTLE IJ ONE; +LIDOCAINE 2% (LOCAL ANESTH.) PF 5ml SDV ONE; +methylPREDNISolone ACETATE 80 MG/ML VL ONE
== END | disposition home or self-care (01) ==
LOC: XYW 08:22
PROVIDERS: ATTEND Orthopaedic Surgery Adult Reconstructive Orthopaedic Surgery
DX: M25.511 Pain in right shoulder (principal); M25.512 Pain in left shoulder
CPT/HCPCS: 20610; 73020; J1040; J2001; J3490; Q9967; 76000

== ENCOUNTER 2022-02-26 18:07 | Emergency (ER) | payer BC ==
[~2022-02-26] VITALS: Ht 177.8 cm; Wt 117.8 kg
[~2022-02-26 18:07] MED LIST changes: -BUPIVACAINE HCL 0.25% P/F 10 ML VIAL ONE; -IOHEXOL 300 MG/ML 100ML BOTTLE IJ ONE; -LIDOCAINE 2% (LOCAL ANESTH.) PF 5ml SDV ONE; -methylPREDNISolone ACETATE 80 MG/ML VL ONE
[2022-02-26 18:26] VITALS: BP 151/96
[2022-02-26] MEDS ORDERED: ACETAMINOPHEN 325 MG TAB PO ONE (20:00)
[2022-02-26 20:10] LABS: Basophils # (auto) 0 10 ^3/uL (0-0.2); Basophils % (auto) 0.2 % (0.0-2.0); Eosinophils # (auto) 0.2 10 ^3/uL (0-0.8); Eosinophils % (auto) 2.6 % (0.0-7.0); Hematocrit 40.4 % (36.0-46.0); Hemoglobin 13.6 g/dL (12.2-16.2); Lymphocytes % (auto) 46.4 % (10.0-50.0); Mean Corpuscular Hemoglobin 31.1 pg (28.0-32.0); Mean Corpuscular Hgb Conc. 33.7 g/dL (32.0-36.0); Mean Corpuscular Volume 92.1 fL (80.0-100.0); Monocytes # (auto) 0.7 10 ^3/uL (0-1.3); Monocytes % (auto) 11.4 % (0.0-12.0); Neutrophils # (auto) 2.5 10 ^3/uL (1.6-8.6); Neutrophils % (auto) 39.4 % (37.0-80.0); Red Blood Cells 4.39 10^6/uL (4.0-5.20); Red Cell Distribution Width 14.5 % (11.8-14.3); White Blood Cell 6.4 10^3/uL (4.4-10.8)
[2022-02-26 20:14] LABS: Urine Bacteria FEW /hpf (None Seen); Urine Blood Negative /uL (Negative); Urine Mucus FEW (None Seen); Urine Specific Gravity 1.031 (1.001-1.035); Urine WBC 4 /hpf (0 - 5)
[2022-02-26 20:14] LABS: Calcium 8.7 mg/dL (8.5-10.1); Potassium 3.1 mmol/L (3.5-5.1)
[2022-02-26 20:18] LABS: Bilirubin, Total 0.5 mg/dL (0.2-1.0); Total Protein 7.7 g/dL (6.4-8.2)
[2022-02-26] MEDS ORDERED: CYCL-837 PO (21:02)
[2022-02-26] MEDS ORDERED: ACET-1158 PO (21:02)
== END 2022-02-26 21:48 | disposition home or self-care (01) ==
LOC: ER 18:07
DX: R10.9 Unspecified abdominal pain (principal); I10 Essential (primary) hypertension; J45.909 Unspecified asthma, uncomplicated; Z88.8 Allergy status to other drugs, medicaments and biological substances; Z79.899 Other long term (current) drug therapy; Z90.710 Acquired absence of both cervix and uterus; Z98.890 Other specified postprocedural states
CPT/HCPCS: 36415; 74176; 80053; 81001; 85025; 93005

== ENCOUNTER 2022-03-06 13:17 | Inpatient (IN) | payer BC ==
[~2022-03-06] VITALS: Ht 177.8 cm; Wt 119.0 kg
[~2022-03-06 13:17] MED LIST changes: +ACET-1158 PO; +CYCL-837 PO
[2022-03-06] MEDS ORDERED: DexAMETHasone INJECTION 10 MG in D5W 5% 50 ML IV ONE (15:00)
[2022-03-06] MEDS ORDERED: SODIUM CHLORIDE 0.9% 1,000 ML IV ONE (15:00)
[2022-03-06] MEDS ORDERED: HYDROmorphone HCL 2 MG/ML VL/or syr IV ONE (15:00)
[2022-03-06 15:53] LABS: Albumin 4.4 g/dL (3.4-5.0); Calcium 9.2 mg/dL (8.5-10.1); Magnesium 2.5 mg/dL (1.6-2.6)
[2022-03-06 15:55] LABS: Basophils # (auto) 0.1 10 ^3/uL (0-0.2); Basophils % (auto) 0.7 % (0.0-2.0); Eosinophils # (auto) 0.1 10 ^3/uL (0-0.8); Eosinophils % (auto) 1.7 % (0.0-7.0); Hematocrit 40.7 % (36.0-46.0); Hemoglobin 13.9 g/dL (12.2-16.2); Lymphocytes # (auto) 3.2 10 ^3/uL (0.4-5.4); Lymphocytes % (auto) 36.8 % (10.0-50.0); Mean Corpuscular Hemoglobin 31.2 pg (28.0-32.0); Mean Corpuscular Hgb Conc. 34.2 g/dL (32.0-36.0); Mean Corpuscular Volume 91.1 fL (80.0-100.0); Monocytes # (auto) 0.6 10 ^3/uL (0-1.3); Monocytes % (auto) 7.4 % (0.0-12.0); Neutrophils # (auto) 4.6 10 ^3/uL (1.6-8.6); Neutrophils % (auto) 53.4 % (37.0-80.0); Nucleated Red Blood Cells % 0.2 %; Red Blood Cells 4.47 10^6/uL (4.0-5.20); Red Cell Distribution Width 13.7 % (11.8-14.3); White Blood Cell 8.7 10^3/uL (4.4-10.8)
[2022-03-06 16:01] LABS: BUN/Creatinine Ratio 13.8; Bilirubin, Total 0.8 mg/dL (0.2-1.0); CRP High Sensitivity 5.3 mg/dL (< 0.3); Total Protein 7.8 g/dL (6.4-8.2)
[2022-03-06 17:18] LABS: Urine Bacteria NONE SEEN /hpf (None Seen); Urine Blood Negative /uL (Negative); Urine Mucus FEW (None Seen); Urine WBC 2 /hpf (0 - 5)
[2022-03-06] MEDS ORDERED: ONDANSETRON HCL 4 MG/2 ML VIAL IV PRN (21:15)
[2022-03-06] MEDS ORDERED: ACETAMINOPHEN 325 MG TAB PO PRN (21:15)
[2022-03-06] MEDS ORDERED: AZITHROMYCIN 500MG/ 250ML 250 ML IV ONE (21:15)
[2022-03-07 05:12] LABS: Basophils # (auto) 0 10 ^3/uL (0-0.2); Basophils % (auto) 0.2 % (0.0-2.0); Eosinophils # (auto) 0 10 ^3/uL (0-0.8); Eosinophils % (auto) 0.1 % (0.0-7.0); Hematocrit 37.1 % (36.0-46.0); Lymphocytes # (auto) 1.1 10 ^3/uL (0.4-5.4); Lymphocytes % (auto) 13.3 % (10.0-50.0); Mean Corpuscular Hemoglobin 31.9 pg (28.0-32.0); Mean Corpuscular Hgb Conc. 35.1 g/dL (32.0-36.0); Mean Corpuscular Volume 90.7 fL (80.0-100.0); Monocytes # (auto) 0.1 10 ^3/uL (0-1.3); Neutrophils # (auto) 6.9 10 ^3/uL (1.6-8.6); Neutrophils % (auto) 85.4 % (37.0-80.0); Nucleated Red Blood Cells % 0.1 %; Red Blood Cells 4.09 10^6/uL (4.0-5.20); Red Cell Distribution Width 13.7 % (11.8-14.3)
[2022-03-07 05:22] LABS: BUN/Creatinine Ratio 14.1; Calcium 9.1 mg/dL (8.5-10.1); Potassium 4.7 mmol/L (3.5-5.1)
[2022-03-07 05:28] VITALS: BP 145/58
[2022-03-07] MEDS ORDERED: TRAZ100T3 PO ×2 (05:41)
[2022-03-07] MEDS ORDERED: VALS40TA2 PO (05:43)
[2022-03-07] MEDS ORDERED: DULO20CA PO (05:44)
[2022-03-07 05:45] VITALS: BP 145/58
[2022-03-07 09:00] VITALS: BP 143/63
[2022-03-07] MEDS ORDERED: AZITHROMYCIN 500MG/ 250ML 250 ML IV SCH (10:00)
[2022-03-07] MEDS: predniSONE 5 MG TAB PO SCH (10:10)
[2022-03-07] MEDS: amLODIPine BESYLATE 5 MG TAB PO SCH (10:11)
[2022-03-07] MEDS: HCTZ 25 MG TAB PO SCH (10:12)
[2022-03-07] MEDS: ATENOLOL 50 MG TAB PO SCH (10:13)
[2022-03-07 13:07] VITALS: BP 146/62
[2022-03-07] MEDS: LIDOCAINE VISCOUS 2% 15ML UD MT PRN (15:51)
[2022-03-07 16:37] VITALS: BP 142/76
[2022-03-07] MEDS: TEMAZEPAM 15 MG CAP PO PRN (20:32)
[2022-03-07 22:00] VITALS: BP 127/61
[2022-03-07] MEDS: AMOXICILLIN/CLAVUL 875 MG TAB PO SCH (22:38)
[2022-03-08 05:00] VITALS: BP 150/65
[2022-03-08 07:30] VITALS: BP 143/63
[2022-03-08 09:00] VITALS: BP 150/69
[2022-03-08] MEDS: AMOXICILLIN/CLAVUL 875 MG TAB PO SCH (09:10)
[2022-03-08] MEDS: predniSONE 5 MG TAB PO SCH (09:10)
[2022-03-08] MEDS: HCTZ 25 MG TAB PO SCH (09:12)
[2022-03-08] MEDS: amLODIPine BESYLATE 5 MG TAB PO SCH (09:13)
[2022-03-08] MEDS: ATENOLOL 50 MG TAB PO SCH (09:14)
[2022-03-08] MEDS: LIDOCAINE VISCOUS 2% 15ML UD MT PRN ×2 (09:15→21:25)
[2022-03-08 13:00] VITALS: BP 121/66
[2022-03-08] MEDS: PIPERACILLIN-TAZOB 3.375GM 100 ML IV SCH ×2 (13:51→21:25)
[2022-03-08 17:00] VITALS: BP 145/86
[2022-03-08] MEDS: TEMAZEPAM 15 MG CAP PO PRN (21:28)
[2022-03-08 22:00] VITALS: BP 109/71
[2022-03-09 05:00] VITALS: BP 117/53
[2022-03-09] MEDS: PIPERACILLIN-TAZOB 3.375GM 100 ML IV SCH ×3 (06:03→22:01)
[2022-03-09 07:30] VITALS: BP 150/65
[2022-03-09] MEDS: predniSONE 5 MG TAB PO SCH (08:48)
[2022-03-09] MEDS: HCTZ 25 MG TAB PO SCH (08:49)
[2022-03-09] MEDS: amLODIPine BESYLATE 5 MG TAB PO SCH (08:50)
[2022-03-09] MEDS: ATENOLOL 50 MG TAB PO SCH (08:51)
[2022-03-09 09:00] VITALS: BP 109/53
[2022-03-09 13:00] VITALS: BP 125/66
[2022-03-09 17:00] VITALS: BP 113/53
[2022-03-09 22:00] VITALS: BP 114/71
[2022-03-09] MEDS: TEMAZEPAM 15 MG CAP PO PRN (22:01)
[2022-03-10 05:00] VITALS: BP 101/45
[2022-03-10] MEDS: PIPERACILLIN-TAZOB 3.375GM 100 ML IV SCH (06:40)
[2022-03-10 09:15] VITALS: BP 101/56
[2022-03-10] MEDS: amLODIPine BESYLATE 5 MG TAB PO SCH (10:00)
[2022-03-10] MEDS: ATENOLOL 50 MG TAB PO SCH (10:00)
[2022-03-10] MEDS: LIDOCAINE VISCOUS 2% 15ML UD MT PRN (10:06)
[2022-03-10] MEDS: predniSONE 5 MG TAB PO SCH (10:08)
[2022-03-10] MEDS: HCTZ 25 MG TAB PO SCH (10:09)
[2022-03-10 12:19] VITALS: BP 101/56
[2022-03-10 12:41] VITALS: BP 126/67
== END 2022-03-10 13:00 | disposition home or self-care (01) | DRG 153 ==
LOC: ER 13:17 → OVERFLOW 21:17 → CENTRAL 03-07 05:16
PROVIDERS: ADMIT Nurse Practitioner; ATTEND Internal Medicine
DX: J02.0 Streptococcal pharyngitis (principal); E66.01 Morbid (severe) obesity due to excess calories; I10 Essential (primary) hypertension; J45.909 Unspecified asthma, uncomplicated; Z20.822 Contact with and (suspected) exposure to COVID-19; M06.9 Rheumatoid arthritis, unspecified; Z79.631 Long term (current) use of antimetabolite agent; Z88.8 Allergy status to other drugs, medicaments and biological substances; Z90.710 Acquired absence of both cervix and uterus; Z68.37 Body mass index [BMI] 37.0-37.9, adult
CPT/HCPCS: 36415; 70490; 80048; 80053; 81001; 83605; 83735; 83880; 85025; 86141; 87040; 87070; 87426; 87880; 96361; 96365; 96367; 96375; G0378; J1100; J2543; J7060

== ENCOUNTER → 2022-11-07 | Outpatient (CLI) | payer OTHER ==
[~2022-11-07] MED LIST changes: -ACET-1158 PO; +ACET500T58 PO; -AMLO-496 PO; +AMLO1TAB23 PO; +DULO20CA PO; -LISI20TA28 PO; +LISI20TA56 PO; +TRAZ-228 PO; +VALS40TA2 PO
[2022-11-07 07:26] LABS: Basophils # (auto) 0 10 ^3/uL (0-0.2); Basophils % (auto) 0.5 % (0.0-2.0); Eosinophils # (auto) 0.2 10 ^3/uL (0-0.8); Neutrophils # (auto) 3.1 10 ^3/uL (1.6-8.6); Nucleated Red Blood Cells % 0.1 %; Red Blood Cells 4.14 10^6/uL (4.0-5.20)
[2022-11-07 07:28] LABS: Eosinophils % (auto) 2.8 % (0.0-7.0); Hematocrit 38.6 % (36.0-46.0); Hemoglobin 13.2 g/dL (12.2-16.2); Lymphocytes # (auto) 2.7 10 ^3/uL (0.4-5.4); Lymphocytes % (auto) 41.9 % (10.0-50.0); Mean Corpuscular Hemoglobin 31.9 pg (28.0-32.0); Mean Corpuscular Hgb Conc. 34.1 g/dL (32.0-36.0); Mean Corpuscular Volume 93.4 fL (80.0-100.0); Monocytes # (auto) 0.4 10 ^3/uL (0-1.3); Monocytes % (auto) 6.5 % (0.0-12.0); Neutrophils % (auto) 48.3 % (37.0-80.0); Red Cell Distribution Width 14.7 % (11.8-14.3); White Blood Cell 6.5 10^3/uL (4.4-10.8)
[2022-11-07 08:02] LABS: Alanine Aminotransferase 30 U/L (7-40); Albumin 4.4 g/dL (3.2-4.8); Alkaline Phosphatase 87 U/L (46-116); Anion Gap 3 (5-15); Aspartate Aminotransferase 18 U/L (13-40); BUN/Creatinine Ratio 10.5 (10.0-20.0); Blood Urea Nitrogen 10 mg/dL (9-23); Calcium 9.4 mg/dL (8.5-10.1); Carbon Dioxide 30 mmol/L (20-30); Chloride 107 mmol/L (98-107); Glucose 99 mg/dL (74-106); Potassium 4.1 mmol/L (3.5-5.1); Sodium 140 mmol/L (136-145); Total Protein 7.4 g/dL (5.7-8.2)
[2022-11-07 08:07] LABS: Erythrocyte Sedimentation Rate 28 mm/hr (0-20)
[2022-11-07 08:10] LABS: CRP High Sensitivity 2.64 mg/dL (<1.0)
== END | disposition home or self-care (01) ==
LOC: LAB 07:08
PROVIDERS: ATTEND Internal Medicine Rheumatology
DX: M05.79 Rheumatoid arthritis with rheumatoid factor of multiple sites without organ or systems involvement (principal)
CPT/HCPCS: 36415; 80053; 85025; 85652; 86141

== ENCOUNTER → 2023-04-22 | Outpatient (CLI) | payer OTHER ==
[2023-04-22 07:30] LABS: Basophils # (auto) 0.1 10 ^3/uL (0-0.2); Basophils % (auto) 0.8 % (0.0-2.0); Eosinophils # (auto) 0.1 10 ^3/uL (0-0.8); Hematocrit 38.9 % (36.0-46.0); Lymphocytes # (auto) 3.1 10 ^3/uL (0.4-5.4); Lymphocytes % (auto) 51.6 % (10.0-50.0); Mean Corpuscular Hemoglobin 31.6 pg (28.0-32.0); Mean Corpuscular Hgb Conc. 33.4 g/dL (32.0-36.0); Mean Corpuscular Volume 94.6 fL (80.0-100.0); Monocytes # (auto) 0.5 10 ^3/uL (0-1.3); Monocytes % (auto) 8.6 % (0.0-12.0); Neutrophils # (auto) 2.2 10 ^3/uL (1.6-8.6); Nucleated Red Blood Cells % 0.1 %; Red Blood Cells 4.11 10^6/uL (4.0-5.20); Red Cell Distribution Width 14.4 % (11.8-14.3)
[2023-04-22 07:32] LABS: Urine Bacteria NONE SEEN /hpf (None Seen); Urine Blood Negative /uL (Negative); Urine Clarity Clear (Clear); Urine Color Yellow (Yellow); Urine Mucus FEW (None Seen); Urine Protein, UAD Negative (Negative); Urine Specific Gravity 1.017 (1.001-1.035); Urine Urobilinogen Normal (Negative); Urine WBC 1 /hpf (0 - 5)
[2023-04-22 07:57] LABS: Alanine Aminotransferase 35 U/L (7-40); Albumin 4.1 g/dL (3.2-4.8); Alkaline Phosphatase 89 U/L (46-116); Anion Gap 7 (5-15); Aspartate Aminotransferase 30 U/L (13-40); BUN/Creatinine Ratio 10.4 (10.0-20.0); Blood Urea Nitrogen 10 mg/dL (9-23); Calcium 9.3 mg/dL (8.5-10.1); Carbon Dioxide 30 mmol/L (20-30); Chloride 104 mmol/L (98-107); Glucose 93 mg/dL (74-106); LDL Cholesterol 68 mg/dL (< 100); Potassium 3.7 mmol/L (3.5-5.1); Sodium 141 mmol/L (136-145); Triglycerides 68 mg/dL (< 150)
[2023-04-22 07:58] LABS: Bilirubin, Total 0.7 mg/dL (0.2-1.0); Cholesterol 132 mg/dL (< 200); HDL Cholesterol 51 mg/dL (40-59)
[2023-04-22 08:06] LABS: CRP High Sensitivity 1.52 mg/dL (<1.0)
[2023-04-22 08:10] LABS: Erythrocyte Sedimentation Rate 21 mm/hr (0-20)
[2023-04-22 08:41] LABS: Free T4 (Free Thyroxine) 1.05 ng/dL (0.89-1.76)
== END | disposition home or self-care (01) ==
LOC: LAB 07:10
PROVIDERS: ATTEND Internal Medicine
DX: I10 Essential (primary) hypertension (principal); M05.79 Rheumatoid arthritis with rheumatoid factor of multiple sites without organ or systems involvement; Z79.899 Other long term (current) drug therapy
CPT/HCPCS: 36415; 80053; 80061; 81001; 82306; 82607; 84439; 84443; 85025; 85652; 86141

== ENCOUNTER → 2023-08-27 | Outpatient (CLI) | payer OTHER ==
[2023-08-27 08:10] LABS: Urine Bacteria None Seen /hpf (None Seen)
[2023-08-27 08:19] LABS: Basophils # (auto) 0.1 10 ^3/uL (0-0.2); Basophils % (auto) 1.1 % (0.0-2.0); Eosinophils # (auto) 0.2 10 ^3/uL (0-0.8); Lymphocytes # (auto) 3.1 10 ^3/uL (0.4-5.4); Neutrophils # (auto) 3.5 10 ^3/uL (1.6-8.6); Nucleated Red Blood Cells % 0.1 %
[2023-08-27 08:21] LABS: Eosinophils % (auto) 2.7 % (0.0-7.0); Hemoglobin 13.6 g/dL (12.2-16.2); Mean Corpuscular Hemoglobin 32.2 pg (28.0-32.0); Mean Corpuscular Volume 94.8 fL (80.0-100.0); Monocytes # (auto) 0.7 10 ^3/uL (0-1.3); Monocytes % (auto) 8.6 % (0.0-12.0); Neutrophils % (auto) 46.6 % (37.0-80.0); Red Blood Cells 4.22 10^6/uL (4.0-5.20); Red Cell Distribution Width 14.7 % (11.8-14.3); Urine Blood Negative /uL (Negative); Urine Clarity Clear (Clear); Urine Color Yellow (Yellow); Urine Mucus FEW (None Seen); Urine Protein, UAD TRACE (Negative); Urine Specific Gravity 1.026 (1.001-1.035); Urine Urobilinogen Normal (Negative); Urine WBC 2 /hpf (0 - 5); Urine pH 6.5 (5.0-9.0); White Blood Cell 7.6 10^3/uL (4.4-10.8)
[2023-08-27 08:46] LABS: Alanine Aminotransferase 34 U/L (7-40); Albumin 4.4 g/dL (3.2-4.8); Alkaline Phosphatase 114 U/L (46-116); Anion Gap 5 (5-15); Aspartate Aminotransferase 20 U/L (13-40); BUN/Creatinine Ratio 14.6 (10.0-20.0); Bilirubin, Total 0.7 mg/dL (0.2-1.0); Blood Urea Nitrogen 14 mg/dL (9-23); Calcium 9.7 mg/dL (8.5-10.1); Carbon Dioxide 32 mmol/L (20-30); Chloride 105 mmol/L (98-107); Glucose 93 mg/dL (74-106); Potassium 3.8 mmol/L (3.5-5.1); Sodium 142 mmol/L (136-145); Total Protein 7.1 g/dL (5.7-8.2)
[2023-08-27 08:55] LABS: CRP High Sensitivity 2.23 mg/dL (<1.0)
[2023-08-27 08:56] LABS: Erythrocyte Sedimentation Rate 25 mm/hr (0-20)
[2023-08-28 08:06] LABS: Rheumatoid Arthritis Factor 11.1 IU/mL (<14.0)
== END | disposition home or self-care (01) ==
LOC: LAB 07:41
PROVIDERS: ATTEND Internal Medicine Rheumatology
DX: Z11.1 Encounter for screening for respiratory tuberculosis (principal); R53.83 Other fatigue; M35.00 Sjogren syndrome, unspecified; M06.9 Rheumatoid arthritis, unspecified
CPT/HCPCS: 36415; 80053; 81001; 85025; 85652; 86141; 86200; 86431; 86704; 87340

== ENCOUNTER → 2023-10-14 | Outpatient (CLI) | payer OTHER ==
[2023-10-14 07:33] LABS: Basophils # (auto) 0 10 ^3/uL (0-0.2); Basophils % (auto) 0.3 % (0.0-2.0); Eosinophils # (auto) 0.1 10 ^3/uL (0-0.8); Eosinophils % (auto) 1.4 % (0.0-7.0); Hemoglobin 13.5 g/dL (12.2-16.2); Lymphocytes % (auto) 47.4 % (10.0-50.0); Mean Corpuscular Hemoglobin 32.1 pg (28.0-32.0); Mean Corpuscular Hgb Conc. 33.7 g/dL (32.0-36.0); Mean Corpuscular Volume 95.4 fL (80.0-100.0); Monocytes # (auto) 0.6 10 ^3/uL (0-1.3); Monocytes % (auto) 8.8 % (0.0-12.0); Neutrophils # (auto) 2.7 10 ^3/uL (1.6-8.6); Neutrophils % (auto) 42.1 % (37.0-80.0); Nucleated Red Blood Cells % 0.1 %; Platelet Count (auto) 426 10^3/uL (140-450); Red Cell Distribution Width 15.1 % (11.8-14.3); White Blood Cell 6.4 10^3/uL (4.4-10.8)
[2023-10-14 08:05] LABS: Alanine Aminotransferase 25 U/L (7-40); Albumin 4.2 g/dL (3.2-4.8); Alkaline Phosphatase 101 U/L (46-116); Aspartate Aminotransferase 18 U/L (13-40); BUN/Creatinine Ratio 12.5 (10.0-20.0); Bilirubin, Total 0.7 mg/dL (0.2-1.0); Blood Urea Nitrogen 12 mg/dL (9-23); Calcium 9.6 mg/dL (8.7-10.4); Chloride 107 mmol/L (98-107); Glucose 95 mg/dL (74-106); Potassium 4.1 mmol/L (3.5-5.1); Total Protein 7.2 g/dL (5.7-8.2)
[2023-10-14 08:13] LABS: CRP High Sensitivity 1.63 mg/dL (<1.0)
[2023-10-14 08:14] LABS: Carbon Dioxide 32 mmol/L (20-30)
[2023-10-14 08:23] LABS: Erythrocyte Sedimentation Rate 23 mm/hr (0-20)
[2023-10-14 09:29] LABS: Anion Gap 1 (5-15); Sodium 140 mmol/L (136-145)
== END | disposition home or self-care (01) ==
LOC: LAB 07:16
PROVIDERS: ATTEND Internal Medicine Rheumatology
DX: M05.69 Rheumatoid arthritis of multiple sites with involvement of other organs and systems (principal); R94.6 Abnormal results of thyroid function studies; Z79.899 Other long term (current) drug therapy
CPT/HCPCS: 36415; 80053; 82533; 84443; 85025; 85652; 86141

== ENCOUNTER 2023-12-14 18:52 | Emergency (ER) | payer BC, OTHER ==
[~2023-12-14] VITALS: Ht 177.8 cm; Wt 120.0 kg
[2023-12-14 19:32] LABS: Basophils # (auto) 0 10 ^3/uL (0-0.2); Basophils % (auto) 0.4 % (0.0-2.0); Eosinophils # (auto) 0.1 10 ^3/uL (0-0.8); Hematocrit 40.2 % (36.0-46.0); Hemoglobin 13.4 g/dL (12.2-16.2); Lymphocytes # (auto) 3.2 10 ^3/uL (0.4-5.4); Lymphocytes % (auto) 52.2 % (10.0-50.0); Mean Corpuscular Hemoglobin 31.2 pg (28.0-32.0); Mean Corpuscular Hgb Conc. 33.4 g/dL (32.0-36.0); Mean Corpuscular Volume 93.5 fL (80.0-100.0); Monocytes # (auto) 0.7 10 ^3/uL (0-1.3); Monocytes % (auto) 11.4 % (0.0-12.0); Neutrophils # (auto) 2.1 10 ^3/uL (1.6-8.6); Nucleated Red Blood Cells % 0.2 %; Platelet Count (auto) 439 10^3/uL (140-450); Red Blood Cells 4.29 10^6/uL (4.0-5.20); Red Cell Distribution Width 14.7 % (11.8-14.3); White Blood Cell 6.2 10^3/uL (4.4-10.8)
[2023-12-14 19:50] LABS: Alanine Aminotransferase 20 U/L (7-40); Albumin 4.3 g/dL (3.2-4.8); Alkaline Phosphatase 111 U/L (46-116); Anion Gap 8 (5-15); Aspartate Aminotransferase 13 U/L (13-40); BUN/Creatinine Ratio 12.7 (10.0-20.0); Blood Urea Nitrogen 14 mg/dL (9-23); Calcium 9.7 mg/dL (8.7-10.4); Carbon Dioxide 25 mmol/L (20-31); Chloride 110 mmol/L (98-107); Glucose 102 mg/dL (74-106); Magnesium 2.1 mg/dL (1.6-2.6); Sodium 143 mmol/L (136-145)
[2023-12-14 19:51] LABS: Bilirubin, Total 0.5 mg/dL (0.2-1.0); Total Protein 7.2 g/dL (5.7-8.2)
[2023-12-14] MEDS: KETOROLAC TROMETH 60MG/2ML VIAL IM ONE (20:58)
[2023-12-14 20:59] VITALS: PULSE 73; RESP 18; O2SAT 97
[2023-12-14] MEDS ORDERED: IBUP-1455 PO (23:14)
[2023-12-15 00:20] VITALS: BP 142/59; PULSE 72; RESP 18; TEMP 97.9; O2SAT 97
[2023-12-15] MEDS: HYDROcodone-ACET 10/325MG TAB PO ONE (00:39)
== END 2023-12-15 00:43 | disposition home or self-care (01) ==
LOC: ER 18:52
DX: M94.0 Chondrocostal junction syndrome [Tietze] (principal); I10 Essential (primary) hypertension; J45.909 Unspecified asthma, uncomplicated; M19.90 Unspecified osteoarthritis, unspecified site; R06.02 Shortness of breath; Z79.899 Other long term (current) drug therapy; Z90.710 Acquired absence of both cervix and uterus; Z88.5 Allergy status to narcotic agent; Z88.8 Allergy status to other drugs, medicaments and biological substances
CPT/HCPCS: 36415; 71045; 80053; 83735; 83880; 84484; 85025; 93005; 96372; 99285; J1885

== ENCOUNTER → 2023-12-23 | Outpatient (CLI) | payer OTHER ==
[~2023-12-23] MED LIST changes: +IBUP-1455 PO
[2023-12-23 07:42] LABS: Basophils # (auto) 0 10 ^3/uL (0-0.2); Basophils % (auto) 0.4 % (0.0-2.0); Eosinophils # (auto) 0.1 10 ^3/uL (0-0.8); Eosinophils % (auto) 2.6 % (0.0-7.0); Hematocrit 39.2 % (36.0-46.0); Hemoglobin 13.6 g/dL (12.2-16.2); Lymphocytes # (auto) 2.8 10 ^3/uL (0.4-5.4); Mean Corpuscular Hemoglobin 32.4 pg (28.0-32.0); Mean Corpuscular Hgb Conc. 34.6 g/dL (32.0-36.0); Mean Corpuscular Volume 93.7 fL (80.0-100.0); Monocytes # (auto) 0.7 10 ^3/uL (0-1.3); Monocytes % (auto) 11.9 % (0.0-12.0); Neutrophils % (auto) 36.1 % (37.0-80.0); Nucleated Red Blood Cells % 0.1 %; Platelet Count (auto) 380 10^3/uL (140-450); Red Blood Cells 4.19 10^6/uL (4.0-5.20); Red Cell Distribution Width 15.1 % (11.8-14.3); White Blood Cell 5.6 10^3/uL (4.4-10.8)
[2023-12-23 08:06] LABS: Erythrocyte Sedimentation Rate 17 mm/hr (0-20)
[2023-12-23 08:11] LABS: Alanine Aminotransferase 19 U/L (7-40); Albumin 4.1 g/dL (3.2-4.8); Alkaline Phosphatase 123 U/L (46-116); Anion Gap 8 (5-15); Aspartate Aminotransferase 15 U/L (13-40); BUN/Creatinine Ratio 13.3 (10.0-20.0); Bilirubin, Total 0.5 mg/dL (0.2-1.0); Blood Urea Nitrogen 13 mg/dL (9-23); Calcium 9.4 mg/dL (8.7-10.4); Carbon Dioxide 28 mmol/L (20-31); Chloride 108 mmol/L (98-107); Cholesterol 119 mg/dL (< 200); Glucose 103 mg/dL (74-106); HDL Cholesterol 53 mg/dL (40-59); LDL Cholesterol 50 mg/dL (< 100); Potassium 3.7 mmol/L (3.5-5.1); Sodium 144 mmol/L (136-145); Triglycerides 70 mg/dL (< 150)
[2023-12-23 08:16] LABS: CRP High Sensitivity 1.79 mg/dL (<1.0)
== END | disposition home or self-care (01) ==
LOC: LAB 07:04
PROVIDERS: ATTEND Internal Medicine Rheumatology
DX: M05.69 Rheumatoid arthritis of multiple sites with involvement of other organs and systems (principal)
CPT/HCPCS: 36415; 80053; 80061; 85025; 85652; 86141

== ENCOUNTER → 2024-02-03 | Outpatient (CLI) | payer OTHER ==
[2024-02-03 12:00] LABS: Basophils # (auto) 0 10 ^3/uL (0-0.2); Basophils % (auto) 0.6 % (0.0-2.0); Eosinophils # (auto) 0.2 10 ^3/uL (0-0.8); Eosinophils % (auto) 4.4 % (0.0-7.0); Hematocrit 39.9 % (36.0-46.0); Hemoglobin 13.5 g/dL (12.2-16.2); Lymphocytes # (auto) 2.4 10 ^3/uL (0.4-5.4); Lymphocytes % (auto) 48.4 % (10.0-50.0); Mean Corpuscular Hemoglobin 31.6 pg (28.0-32.0); Mean Corpuscular Hgb Conc. 33.8 g/dL (32.0-36.0); Mean Corpuscular Volume 93.4 fL (80.0-100.0); Monocytes # (auto) 0.6 10 ^3/uL (0-1.3); Monocytes % (auto) 12.9 % (0.0-12.0); Neutrophils # (auto) 1.7 10 ^3/uL (1.6-8.6); Neutrophils % (auto) 33.7 % (37.0-80.0); Nucleated Red Blood Cells % 0.2 %; Platelet Count (auto) 405 10^3/uL (140-450); Red Blood Cells 4.27 10^6/uL (4.0-5.20); Red Cell Distribution Width 14.9 % (11.8-14.3)
[2024-02-03 12:35] LABS: Alanine Aminotransferase 20 U/L (7-40); Albumin 4.3 g/dL (3.2-4.8); Alkaline Phosphatase 81 U/L (46-116); Anion Gap 6 (5-15); Aspartate Aminotransferase 23 U/L (13-40); BUN/Creatinine Ratio 7.5 (10.0-20.0); Calcium 10.1 mg/dL (8.7-10.4); Chloride 105 mmol/L (98-107); Glucose 95 mg/dL (74-106); Potassium 3.7 mmol/L (3.5-5.1); Sodium 143 mmol/L (136-145)
[2024-02-03 12:36] LABS: Bilirubin, Total 0.9 mg/dL (0.2-1.0); Total Protein 7.5 g/dL (5.7-8.2)
[2024-02-03 12:37] LABS: Blood Urea Nitrogen 8 mg/dL (9-23); Carbon Dioxide 32 mmol/L (20-31)
== END | disposition home or self-care (01) ==
LOC: LAB 11:35
PROVIDERS: ATTEND Internal Medicine
DX: J03.90 Acute tonsillitis, unspecified (principal)
CPT/HCPCS: 36415; 80053; 85025; 86308

== ENCOUNTER → 2024-02-04 | Outpatient (CLI) | payer OTHER ==
[~2024-02-04] VITALS: Ht 177.8 cm; Wt 123.4 kg
[2024-02-04] MEDS: REGADENOSON 0.4 MG/5 ML SYRG IV ONE ×2 (10:11)
--- NOTE | 2024-02-04 11:54 | DVHSR ---
APPROVED REPORT Exam: Nuclear Stress Test BMI: 0 Stress Test Details HR Max Heart Rate (APMHR): 162.067923 bpm Target HR (85% APMHR): 137.490388 bpm BP ECG Stress ECG Conclusion Resting images shows near homogeneous uptake of radioactive tracer throughout the myocardium without evidence of myocardial infarction. Stress images shows near homogeneous uptake of radioactive tracer throughout the myocardium without e vidence of myocardial ischemia. Well-preserved left ventricular systolic function is 74%. Impression: Negative stress test for ischemia, low risk study. NM EXAM: Myocardial Perfusion REST/STRESS Imaging Protocol: Rest Tc-99m/Stress Tc-99m 1 day Resting Data Rest SPECT myocardial perfusion imaging was performed in supine position 60 minutes following the int ravenous injection of 13.3 mCi of Tc-99m Sestamibi. Time of rest injection: 0900 Date: 02/04/2024 Time of rest imagin Date: 02/04/2024 Administration Route: IV Administration Site: Left AC Pharmacologic Stress Pharmacologic stress test was performed by injecting Regadenoson 0.4 mg IV push followed by the intra venous injection of 32.3 mCi of Tc-99m Sestamibi. Time of stress injection: 1011 Date: 02/04/2024 Time of stress imagin Date: 02/04/2024 Administration Route: IV Administration Site: Left AC Gated Stress SPECT was performed 60 minutes after stress injection. The images were gated to evaluate regional wall motion and calculate left ventricular ejection fracti on. Stress only was performed in the Supine position. Nuclear Conclusion ECG Findings: negative for ischemia Clinical Findings: negative for ischemia Nuclear Findings: negative for ischemia Exercise Capacity: not assessed Left Ventricular Function: normal Risk Study: low Resting images shows near homogeneous uptake of radioactive tracer throughout the myocardium without evidence of myocardial infarction. Stress images shows near homogeneous uptake of radioactive tracer throughout the myocardium without e vidence of myocardial ischemia. Well-preserved left ventricular systolic function is 74%. Impression: Negative stress test for ischemia, low risk study.
== END | disposition home or self-care (01) ==
LOC: XYW 08:49
PROVIDERS: ATTEND Internal Medicine
DX: R07.9 Chest pain, unspecified (principal); I10 Essential (primary) hypertension; M06.9 Rheumatoid arthritis, unspecified; E66.01 Morbid (severe) obesity due to excess calories; Z82.49 Family history of ischemic heart disease and other diseases of the circulatory system; Z87.09 Personal history of other diseases of the respiratory system
CPT/HCPCS: 78452; 93017; A9500; J2785

== ENCOUNTER 2024-08-01 08:20 | Emergency (ER) | payer SELFPAY ==
[~2024-08-01] VITALS: Ht 177.8 cm; Wt 124.3 kg
[2024-08-01 09:14] VITALS: BP 154/89; PULSE 82; RESP 16; TEMP 98; O2SAT 97
--- NOTE | 2024-08-01 09:22 | ED.PDOC ---
History of Present Illness HPI Comments 59-year-old black female presented to the [facility] complaining of pain to the right breast with a lump and small bleeding lesion duration about two weeks also she has fungal infection under both breasts Chief Complaint: Breast pain Time Seen by MD: 09:02 Primary Care Provider: AIDAN BERNAL Reviewed Notes: Nurses Notes, Medications, Allergies Allergies: Coded Allergies: Lisinopril (Verified Allergy, Unknown, 03/06/22) Tramadol (Unverified Allergy, Unknown, 12/27/19) Home Meds Active Scripts Ibuprofen Micronized (Ibuprofen) 800 Mg Tab, 800 MG PO Q8HP PRN, #15 TAB Prov:SVETLANA PETERSON PAC 12/14/23 Cyclobenzaprine Hcl (Cyclobenzaprine Hcl) 5 Mg Tab, 1 TAB PO QPM PRN, #14 TAB 0 Refills Prov:JANETTE REID 02/26/22 Acetaminophen (Acetaminophen) 500 Mg Tab, 500 MG PO QIDP, #30 TAB 0 Refills Prov:JANETTE REID 02/26/22 Reported Medications Duloxetine Hcl (Cymbalta) 20 Mg Cap, 30 MG PO DAILY, CAP 03/07/22 Valsartan (Diovan) 40 Mg Tab, 160 MG PO HS, TAB 03/07/22 Trazodone Hcl (Trazodone Hcl) 100 Mg Tab, 50 MG PO QHSP, TAB 03/07/22 Albuterol Sulfate (VENTOLIN MDI) 90 Mcg Ih, 90 MCG IN PRN, INH 12/27/19 Amlodipine Besylate (Amlodipine Besylate) 10 Mg Tab, 1 TAB PO DAILY, #30 TAB 5 Refills 07/28/17 Hydrochlorothiazide (Hydrochlorothiazide) 25 Mg Tab, 25 MG PO DAILY for 30 Days, MG 07/28/17 Atenolol (Atenolol) 25 Mg Tab, 25 MG PO DAILY for 30 Days, MG 07/28/17 Lisinopril (Lisinopril) 20 Mg Tab, 1 TAB PO DAILY, #30 TAB 5 Refills 12/14/13 Information Source: Patient, Emergency Med Personnel Mode of Arrival: Ambulatory Severity: Moderate Timing: Weeks, Came on: Gradually Duration: Since onset Past Medical History PAST MEDICAL HISTORY: Arthritis, Asthma, HTN Past Medical History (Other): Rheumatoid arthritis Surgical History: Hysterectomy Surgical History (Other): Left total knee FORECLOSURE SPECIALIST History: No Pertinent FORECLOSURE SPECIALIST History Family History Family History: Unknown Social History Smoker: Non-Smoker Alcohol: Denies ETOH Use Drugs: Denies Drug Use Lives In: Home Constitutional: denies: chills, diaphoresis, fatigue, fever, malaise, sweats, weakness, others EENTM: denies: blurred vision, double vision, ear bleeding, ear discharge, ear drainage, ear pain, ear ringing, eye pain, eye redness, hearing loss, mouth pain, mouth swelling, nasal discharge, nose bleeding, nose congestion, nose pain, photophobia, tearing, throat pain, throat swelling, voice changes, others Respiratory: denies: cough, hemoptysis, orthopnea, SOB at rest, shortness of breath, SOB with excertion, stridor, wheezing, others Cardiovascular: denies: chest pain, dizzy spells, diaphoresis, Dyspnea on exertion, edema, irregular heart beat, left arm pain, lightheadedness, palpitations, PND, syncope, others Gastrointestinal: denies: abdomen distended, abdominal pain, blood streaked bowels, constipated, diarrhea, dysphagia, difficulty swallowing, hematemesis, melena, nausea, poor appetite, poor fluid intake, rectal bleeding, rectal pain, vomiting, others Genitourinary: denies: abnormal vagina bleeding, burning, dyspareunia, dysuria, flank pain, frequency, hematuria, incontinence, pain, , vagina discharge, urgency, others Neurological: denies: dizziness, fainting, headache, left sided numbness, left sided weakness, numbness, paresthesia, pre-existing deficit, right sided numbne ss, right sided weakness, seizure, speech problems, tingling, tremors, weakness, others Musculoskeletal: denies: back pain, gout, joint pain, joint swelling, muscle pain, muscle stiffness, neck pain, others Integumetry: reports: lesions, lumps; denies: bruises, change in color, change in hair/nails, dryness, laceration, rash, wounds, others Allergic/Immunocompromised: denies: Difficulty Healing, Frequent Infections, Hives, Itching, others Endocrine: denies: excessive hunger, excessive sweating, excessive thirst, excessive urination, flushing, intolerance to cold, intolerance to heat, unexplained weight gain, unexplained weight loss, others Psychiatric: denies: anxiety, bipolar disorder, depression, hopeless, panic disorder, schizophrenia, sleepless, suicidal, others All Other Systems: Reviewed and Negative Physical Exam General Appearance: Moderate Distress, Obese HEENT: Normal ENT Inspection, Pharynx Normal, TMs Normal Neck: Full Range of Motion, Non-Tender, Normal, Normal Inspection Respiratory: Chest Non-Tender, Lungs Clear, No Accessory Muscle Use, No Respiratory Distress, Normal Breath Sounds Cardiovascular: No Edema, No JVD, No Murmur, No Gallop, Normal Peripheral Pulses, Regular Rate/Rhythm Breast Exam: (R) Mass, (L) Tenderness, Other (Small bleeding lesion right lower quadrant fungal infection under depressed) Gastrointestinal: No Organomegaly, Non Tender, No Pulsatile Mass, Normal Bowel Sounds, Soft Genitalia: Deferred Pelvic: Deferred Rectal: Deferred Extremities: No calf tenderness, Normal capillary refill, Normal inspection, Normal range of motion, Non-tender, No pedal edema Neurologic: Alert, social work administrator II-XII nml as Tested, No Motor Deficits, Normal Affect, Normal Mood, No Sensory Deficits Cerebellar Function: Normal Reflexes: Normal Skin: Dry, Normal Color, Warm Peripheral Pulses: 1+ carotid (R), 1+ carotid (L) Lymphatic: No Adenopathy Was a procedure done? Was a procedure done?: No Differential Dx Considerations may include: Breast infection breast carcinoma fungal infection X-Ray, Labs, Meds, VS Vital Signs Date Time Temp Pulse Resp B/P (MAP) Pulse Ox O2 Delivery O2 Flow Rate FiO2 08/01/24 09:14 82 16 97 Room Air 08/01/24 09:14 98.0 82 16 154/89 (110) 97 98.0 08/01/24 08:34 97.8 83 16 169/92 (117) 97 97.8 X-Ray, Labs, Meds, VS Comment Course in the [facility] eventful Patient presented with a lump to the right breast which is painful and a small bleeding lesion The mammogram shows superficial hypoechoic structure measuring 1.2 x 2 x 2 x 0 point 3 cm clear probably a sebaceous cyst but other atrial allergies still possible Patient will be discharged 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 she needs a mammogram and possible biopsy Time of 1ST Reevaluation: 09:22 Reevaluation 1ST: Unchanged Time of 2ND Reevaluation: 11:02 Reevaluation 2ND: Unchanged Consultation: PCP, public policy associate Patient Education/Counseling: Diagnosis, Treatment, Prognosis, Need For Follow Up Family Education/Counseling: Diagnosis, Treatment, Prognosis, Need For Follow Up, No Family Present Departure 1 Departure Time of Disposition: 11:04 Impression: Primary Impression: Lump of breast, right Qualified Codes: N63.13 - Unspecified lump in the right breast, lower outer quadrant Additional Impression: Monilial intertrigo Disposition: 01 HOME / SELF CARE / HOMELESS Condition: Fair Additional Instructions: To follow up with the 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 080906-2.1 Unit/gm-%) 1 Oin Oin 1 OIN EX BID for 15 Days, #100 OIN Prov: BERNIE GARRISON MD 08/01/24 Discharged With: Self Critical Care Note Critical Care Time?: No Stability Stability form required: No Heart Score Heart Score: Heart Score Response (Comments) Value History N/A 0 EKG N/A 0 Age 45-64 1 Risk Factors 1 or 2 risk factors 1 Troponin N/A 0 Total 2 BERNIE GARRISON MD Aug 01, 2024 09:22
--- NOTE | 2024-08-01 10:47 | DVH ---
US OF THE RIGHT BREAST INDICATION: Right lower quadrant lump with a small bleeding lesion TECHNIQUE: All 4 quadrants, subareolar region and axillary region of the RIGHT breast were evaluated with ultrasound COMPARISON: No prior breast imaging was available for comparison at the time of dictation. FINDINGS: Adjacent to the area of clinical concern in the right breast 7 to 8 o'clock position, there is a supe rficial hypoechoic structure measuring up to 1.2 x 2.2 x 0.3 cm adjacent to the skin surface. Differe ntial considerations would include a sebaceous cyst. Other etiologies not excluded. Recommend correla tion with clinical findings and mammography. IMPRESSION: 1. Indeterminate structure adjacent to the skin surface in the right breast 7 to 8 o'clock position. Possible sebaceous cyst, although correlation with clinical findings and mammogram recommended. Mammo gram could be obtained on a nonemergent basis. 2. ACR Bi Rads Category:Category 0-"INCOMPLETE" (Needs Additional Imaging Evaluation))
[2024-08-01] MEDS ORDERED: NYST1OIN25 EX (11:17)
[2024-08-01] MEDS ORDERED: FLUC200T PO (11:17)
== END 2024-08-01 11:28 | disposition home or self-care (01) ==
LOC: ER 08:20
DX: N63.13 Unspecified lump in the right breast, lower outer quadrant (principal); L30.4 Erythema intertrigo; J45.909 Unspecified asthma, uncomplicated; I10 Essential (primary) hypertension; Z90.710 Acquired absence of both cervix and uterus; Z79.899 Other long term (current) drug therapy; Z88.5 Allergy status to narcotic agent
CPT/HCPCS: 76642

== ENCOUNTER → 2024-11-12 | Outpatient (CLI) | payer BC ==
[~2024-11-12] MED LIST changes: +FLUC200T PO; +NYST1OIN25 EX
[2024-11-12 08:41] LABS: Hematocrit 38.3 % (36.0-46.0); Hemoglobin 13.2 g/dL (12.2-16.2); Mean Corpuscular Hemoglobin 30.6 pg (28.0-32.0); Mean Corpuscular Volume 89.0 fL (80.0-100.0); Nucleated Red Blood Cells % 0.1 %
[2024-11-12 08:48] LABS: Urine Protein, UAD Negative (Negative)
[2024-11-12 09:06] LABS: Alanine Aminotransferase 15 U/L (7-40); Albumin 4.4 g/dL (3.2-4.8); Alkaline Phosphatase 110 U/L (46-116); Anion Gap 8 (5-15); BUN/Creatinine Ratio 9.5 (10.0-20.0); Calcium 9.4 mg/dL (8.7-10.4); Carbon Dioxide 29 mmol/L (20-31); Chloride 105 mmol/L (98-107); Cholesterol 116 mg/dL (< 200); Glucose 89 mg/dL (74-106); HDL Cholesterol 48 mg/dL (40-59); Potassium 3.5 mmol/L (3.5-5.1); Sodium 142 mmol/L (136-145); Triglycerides 62 mg/dL (< 150)
[2024-11-12 09:07] LABS: Bilirubin, Total 0.7 mg/dL (0.2-1.0)
[2024-11-12 09:11] LABS: Blood Urea Nitrogen 8 mg/dL (9-23); Total Protein 8.2 g/dL (5.7-8.2)
[2024-11-12 10:11] LABS: Hepatitis B Surface Antigen Negative (Negative)
[2024-11-12 10:27] LABS: Hepatitis C Antibody Negative (Negative)
== END | disposition home or self-care (01) ==
LOC: LAB 07:34
PROVIDERS: ATTEND Internal Medicine
DX: I10 Essential (primary) hypertension (principal); R35.1 Nocturia; E66.01 Morbid (severe) obesity due to excess calories; Z68.41 Body mass index [BMI] 40.0-44.9, adult; Z79.899 Other long term (current) drug therapy
CPT/HCPCS: 36415; 80053; 80061; 80074; 81001; 83036; 83970; 84439; 84443; 85025; 85652; 86141